=== PATIENT | male | born 1965 | race Caucasian/White ===

== ENCOUNTER → 2025-03-11 19:00 | Outpatient (REF) | payer OTHER, SELFPAY | LOC: PAVMRI 19:00 | PROVIDERS: ATTENDING PHYSICIAN Orthopaedic Surgery; FAMILY PHYSICIAN Nurse Practitioner | DX: M25.561 Pain in right knee (principal); M23.91 Unspecified internal derangement of right knee | CPT/HCPCS: 73721 ==